=== PATIENT | female | born 1955 | race Caucasian/White ===

== ENCOUNTER 2023-12-19 20:29 | Emergency (ER) | payer MEDICARE, BC ==
[~2023-12-19] VITALS: Ht 172.7 cm; Wt 95.3 kg
[2023-12-19] MEDS ORDERED: ROSU20TA2 PO (20:53)
[2023-12-19] MEDS ORDERED: LISI40TA13 PO (20:53)
[2023-12-19] MEDS ORDERED: OXYCODONE/APAP 5-325 MG TABLET ONE (21:07)
[2023-12-19] MEDS ORDERED: ONDANSETRON ODT 4 MG TAB.RAPDIS ONE (21:07)
[2023-12-19] MEDS: OXYCODONE/APAP 5-325 MG TABLET PO ONE (21:09)
[2023-12-19] MEDS: ONDANSETRON ODT 4 MG TAB.RAPDIS SL ONE (21:10)
[2023-12-19] MEDS ORDERED: HYDR-3980 PO (22:26)
[2023-12-19] MEDS ORDERED: ONDA4TAB11 PO (22:26)
[2023-12-19 23:00] VITALS: BP 110/66; TEMP 97.9; O2SAT 98
== END 2023-12-19 23:01 | disposition home or self-care (01) ==
LOC: ER 20:35
DX: S82.141A Displaced bicondylar fracture of right tibia, initial encounter for closed fracture (principal); S92.811A Other fracture of right foot, initial encounter for closed fracture; M25.461 Effusion, right knee; E78.5 Hyperlipidemia, unspecified; Z79.899 Other long term (current) drug therapy; W17.89XA Other fall from one level to another, initial encounter; Y93.89 Activity, other specified; Y92.89 Other specified places as the place of occurrence of the external cause; Y99.8 Other external cause status
CPT/HCPCS: 73551; 73590; 73700; A4606; A4663; Q0162